=== PATIENT | female | born 1990 | race Caucasian/White ===

== ENCOUNTER 2022-10-12 10:46 | Emergency (ER) | payer OTHER, SELFPAY ==
[2022-10-12 11:00] VITALS: BP 120/70; PULSE 56; RESP 16; TEMP 36.4; O2SAT 100
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
== END 2022-10-12 11:24 | disposition home or self-care (01) ==
PROVIDERS: Emergency Provider Nurse Practitioner Family; PCP Family Medicine
DX: S13.4XXA Sprain of ligaments of cervical spine, initial encounter (principal); V93.89XA Other injury due to other accident on board unspecified watercraft, initial encounter; S06.0X0A Concussion without loss of consciousness, initial encounter
CPT/HCPCS: 99203; G0463

== ENCOUNTER 2023-07-18 12:30 | Emergency (ER) | payer OTHER, SELFPAY ==
--- NOTE | 2023-07-18 12:37 | ECG_ITS ---
SEE SCANNED COPY FOR CONFIRMED REPORT MTDD
--- NOTE | 2023-07-18 12:37 | ED.GENADULT ---
HPI - General Adult General Stated complaint: chest discomfort Time Seen by Provider: 07/18/23 12:37 Source: patient Mode of arrival: ambulatory Limitations: no limitations History of Present Illness HPI narrative: 33 yo F presents with c/o midsternal CP that a few minutes Was doing hardwork for about 1 hr before CP started. States she felt CP was a tightening sensation, felt lightheaded, fatigue and had cold sensation to hands and feet. Thought she was maybe having allergic reaction so she took zyrtec and used albuterol inhaler with no change. She took shower thinking she may be allergic to something that got on her body from being outdoors. Now has tightening to neck. Continues to feel tired, lightheaded and has cold sensation to hands and feet. hx of asthma. denies SOB. Denies anxiety. all systems reviewed and negative except as noted above. Related Data Home Medications Medication Instructions Recorded Confirmed levonorgestrel 21 mcg/24 hours (8 See Rx Instructions .Route .COMPLEX 10/12/22 10/12/22 yrs) 52 mg intrauterine device (Mirena) Allergies Allergy/AdvReac Type Severity Reaction Status Date / Time No Known Allergies Allergy Verified 10/12/22 10:53 Review of Systems Review of Systems: CONSTITUTIONAL: Denies fever, chills, or sweats. reports fatigue. EYES: Denies visual changes, redness, or discharge. ENT: Denies rhinorrhea, congestion, sore throat, or otalgia. CARDIOVASCULAR: Reports chest pain. Denies palpitations, or edema. RESPIRATORY: Denies cough or dyspnea. GASTROINTESTINAL: Denies abdominal pain, nausea, vomiting, or diarrhea. GENITOURINARY: Denies dysuria or hematuria. SKIN: Denies rash or itching. MUSCULOSKELETAL: Denies back pain, joint pain, or myalgia. NEUROLOGIC: Denies headache, numbness, or weakness. feeling lightheaded PSYCHIATRIC: Denies anxiety or depression. All other systems reviewed are negative, except as documented in HPI. PMFSH Comments At time of signature, agree with nursing past medical, surgical, social and family history. There is no relevant family history pertinent to the presenting complaint. Exam Narrative: GENERAL: This is a well-nourished, well-developed patient, in no apparent distress. HEAD: normocephalic, atraumatic. EYES: PERRL. Sclera clear/white. Vision is grossly intact. EARS: External ears normal NOSE: External nose normal NECK: Neck supple, non-tender without lymphadenopathy, masses or thyromegaly. CARDIOVASCULAR: Regular rate and rhythm without murmurs, gallops, or rubs. RESPIRATORY: Clear to auscultation. Breath sounds equal bilaterally. No wheezes, rales, or rhonchi. SKIN: warm, Dry, intact with no suspicious lesions or rash, good texture and turgor. NEURO: awake, alert, and oriented to person, place and time. There were no obvious focal neurologic abnormalities. EXTREMITIES: No joint tenderness, effusion, or edema noted. Course Course Level of Care: Express Care Visit Vital Signs Vital signs: Vital Signs Temperature 36.8 C 07/18/23 12:42 Pulse Rate 80 07/18/23 12:42 Respiratory Rate 18 07/18/23 12:42 Blood Pressure 140/72 07/18/23 12:42 Pulse Oximetry 100 07/18/23 12:42 Oxygen Delivery Room Air 07/18/23 12:42 Temperature 36.8 C 07/18/23 12:42 Pulse Rate 80 07/18/23 12:42 Respiratory Rate 18 07/18/23 12:42 Blood Pressure 140/72 07/18/23 12:42 Pulse Oximetry 100 07/18/23 12:42 Oxygen Delivery Room Air 07/18/23 12:42 reviewed Transfer Transfered to: [place] Transportation: Other ( private vehicle) Transfer rationale: transferring to [place] ER for further evaluation chest pain Accepting physician: MD Rodríguez Medical Decision Making [facility] Narrative Medical decision making narrative: EKG normal sinus rhythm. Transferring patient to ER to further evaluate her symptoms. Patient is aware of diagnosis, understands and agrees to treatment plan. Qamar moreno
[2023-07-18 12:42] VITALS: BP 140/72; PULSE 80; RESP 18; TEMP 36.8; O2SAT 100
== END 2023-07-18 12:47 | disposition short-term general hospital (02) ==
PROVIDERS: Emergency Provider Nurse Practitioner Family; PCP Family Medicine
DX: R07.9 Chest pain, unspecified (principal); R42 Dizziness and giddiness
CPT/HCPCS: 93005; 99213; G0463

== ENCOUNTER 2023-07-18 12:59 | Emergency (ER) | payer OTHER, SELFPAY ==
--- NOTE | ~2023-07-18 | XR_ITS ---
EXAMINATION: XR chest 2V DATE: 07/18/2023 13:38 INDICATION: Chest tightness TECHNIQUE: PA and lateral views of the chest were obtained. COMPARISON: None FINDINGS: The lungs are clear with no focal airspace opacities, pulmonary edema, pleural effusion or pneumothor ax. The cardiomediastinal silhouette is normal. Visualized bones and soft tissues are unremarkable. IMPRESSION: 1. No acute cardiopulmonary disease. Reviewed, dictated and finalized at location A.
--- NOTE | 2023-07-18 13:01 | ECG_ITS ---
SEE SCANNED COPY FOR CONFIRMED REPORT MTDD
[2023-07-18 13:03] VITALS: BP 126/68; PULSE 70; RESP 20; TEMP 36.6; O2SAT 100
[2023-07-18 13:15] VITALS: PULSE 79; RESP 16; O2SAT 100
[2023-07-18] MEDS: predniSONE 20 MG TABLET 40 MG PO (13:26)
[2023-07-18 13:27] LABS: Basophils Absolute Auto 0.1 K/mm3 (0.0-0.1); Basophils Percent Auto 0.7 % (0.2-1.2); Eosinophils Absolute Auto 0.1 K/mm3 (0-0.3); Eosinophils Percent Auto 1.6 % (0-4.4); Hematocrit 39.2 % (37.0-47.0); Hemoglobin 13.5 g/dL (12.0-15.0); Immature Granulocyte Absolute 0.03 K/mm3 (0.00-0.031); Immature Granulocyte Percent A 0.4 % (0-0.5); Lymphocytes Absolute Auto 2.37 K/mm3 (0.9-3.2); Lymphocytes Percent Auto 31.4 % (18.3-44.2); Mean Corpuscular HGB Conc 34.4 g/dl (32-36); Mean Corpuscular Hemoglobin 31.7 pg (26-34); Mean Platelet Volume 9.6 fl (7.4-10.4); Monocytes Absolute Auto 0.4 K/mm3 (0.1-0.6); Monocytes Percent Auto 4.9 % (2.6-8.5); Neutrophils Absolute Auto 4.6 K/mm3 (1.3-6.7); Platelet Count Result 277 k/mm3 (150-375); Red Blood Count 4.26 M/mm3 (4.2-5.4); Red Cell Distribution Width 12.3 % (11.5-14.5); White Blood Count 7.5 K/mm3 (4.5-10.0)
--- NOTE | 2023-07-18 13:28 | ED.CHESTPAIN ---
HPI - Chest Pain General Chief Complaint: Chest Pain Stated Complaint: chest tightness while doing yardwork Time Seen by Provider: 07/18/23 13:12 History of Present Illness HPI narrative: Patient has history of asthma, was doing yd work and trimming bushes when a bunch of falling and but is or falling on her, she started having chest tightness and felt like she was having trouble breathing and felt slightly lightheaded, also felt like her hands and feet felt slightly cold which is common due to thyroid condition, she had been out doing lawn work for about 2 hours, came in, gave herself some albuterol, felt slightly better, went to an urgent care because she was concerned about an asthma exacerbation, and they sent her to the ER because of a chest tightness. She has no cardiac history no history of blood clot she is already feeling better. Related Data Home Medications Medication Instructions Recorded Confirmed levonorgestrel 21 mcg/24 hours (8 See Rx Instructions .Route .COMPLEX 10/12/22 07/18/23 yrs) 52 mg intrauterine device (Mirena) Allergies Allergy/AdvReac Type Severity Reaction Status Date / Time cat dander Allergy Hives Verified 07/18/23 13:06 Review of Systems Review of Systems: CONST: No fever. HEENT: No sore throat C/V: Chest tightness now resolved RESP: Shortness of breath now resolved GI: No abdominal pain : No dysuria. M/S: No joint pain. SKIN: No rash. NEURO: [No headache or focal numbness or weakness] PSYCH: [No depression] Exam Narrative: EXAMINATION OF ORGAN SYSTEMS/BODY AREAS: Constitutional: Vital signs per nursing GENERAL:[No acute distress, non-toxic appearing.] HEAD: Normal with no signs of head trauma. EYES: EOMI, conjunctiva normal ENT: Hearing grossly intact LUNGS: Nonlabored breathing. Clear to auscultation bilaterally. HEART: [Regular rate and rhythm] ABD: [Soft], [nontender to palpation] EXT: Normal range of motion, no lower extremity edema swelling or tenderness SKIN: [No rashes or lesions.] NEURO: [Alert and oriented x 3. No gross focal sensory or strength deficits.] PSYCH: Normal affect Course Vital Signs Vital signs: Vital Signs Temperature 97.8 F 07/18/23 13:03 Pulse Rate 70 07/18/23 13:03 Respiratory Rate 20 07/18/23 13:03 Blood Pressure 126/68 07/18/23 13:03 Pulse Oximetry 100 07/18/23 13:03 Oxygen Delivery Room Air 07/18/23 13:03 Temperature 97.8 F 07/18/23 13:03 Pulse Rate 66 07/18/23 13:45 Respiratory Rate 16 07/18/23 13:45 Blood Pressure 104/84 07/18/23 13:39 Pulse Oximetry 100 07/18/23 13:45 Oxygen Delivery Room Air 07/18/23 13:03 MDM - Chest Pain MDM Narrative Medical decision making narrative: ED COURSE AND MEDICAL DECISION MAKINF with acute dyspnea and chest tightness likely due to acute asthma exacerbation based on history and exam, versus possibly heat exhaustion. She is PERC negative. Patient is hemodynamically stable. Sure the gave herself albuterol treatment and her lungs are clear here, so I did give steroids orally. She was sent from Urgent Care due to concern for chest which has already resolved here. I did personally and independently interpreted her EKG which is normal chest x-ray which was clear without any obvious consolidation or pneumothorax. Labs including troponin were negative. Patient monitored in the ED for a couple of hours and on reevaluation is feeling significantly better. No respiratory distress or accessory muscle use. Good air movement bilateral lungs. Prescriptions for steroid course provided. She is given strict return precautions instructions to avoid environmental triggers, and patient is discharged in stable/improved condition. Lab Data 07/18/23 13:23 07/18/23 13:23 Labs: Lab Results 07/18/23 Range/Units 13:23 WBC 7.5 (4.5-10.0) K/mm3 RBC 4.26 (4.2-5.4) M/mm3 Hgb 13.5 (12.0-15.0) g/dL Hct 39.2
[2023-07-18 13:30] VITALS: PULSE 75; RESP 18; O2SAT 98
[2023-07-18 13:31] VITALS: BP 123/72; PULSE 75; RESP 15; O2SAT 99
[2023-07-18 13:37] LABS: Alanine Aminotransferase 17 U/L (6-35); Albumin Level 4.5 g/dL (3.5-5.1); Alkaline Phosphatase 53 U/L (38-126); Anion Gap 7 mmol/L (4-12); Aspartate Amino Transferase 33 U/L (14-36); Bilirubin,Total 0.8 mg/dL (0.2-1.3); Blood Urea Nitrogen 17 mg/dL (7-17); Calcium 9.2 mg/dL (8.4-10.2); Carbon Dioxide 24 mmol/L (22-30); Chloride 106 mmol/L (98-107); Estimated CRCL calculation 94 ml/min; Estimated Glomerular Filt Rate > 60; Glucose 95 mg/dL (65-110); Lipase 63 U/L (23-300); Potassium 3.5 mmol/L (3.4-5.0); Sodium 137 mmol/L (137-145)
[2023-07-18 13:39] VITALS: BP 104/84; PULSE 64; RESP 15
[2023-07-18 13:39] LABS: Prothrombin Time 13.2 Seconds (11.1-14.7)
[2023-07-18 13:45] VITALS: PULSE 66; RESP 16; O2SAT 100
[2023-07-18 13:47] LABS: Partial Thromboplastin Time 31.8 Seconds (22.3-36.8)
[2023-07-18 13:48] LABS: Troponin I < 0.012 ng/mL (0.000-0.034)
== END 2023-07-18 14:07 | disposition home or self-care (01) ==
PROVIDERS: Student in an Organized Health Care Education/Training Program; Emergency Provider Emergency Medicine; PCP Family Medicine
DX: J45.901 Unspecified asthma with (acute) exacerbation (principal); R94.31 Abnormal electrocardiogram [ECG] [EKG]
CPT/HCPCS: 36415; 71046; 80053; 83690; 84484; 85025; 85610; 85730; 93005; 99284; J7512

== ENCOUNTER 2023-09-24 07:12 | Outpatient (CLI) | payer OTHER, SELFPAY ==
--- NOTE | ~2023-09-24 | MR_ITS ---
EXAMINATION: MR cervical spine wo con DATE: 09/24/2023 07:43 INDICATION: Neck pain. TECHNIQUE: Magnetic resonance imaging (MRI) of the cervical spine was performed without intravenous c ontrast. COMPARISON: None FINDINGS: There is mild kyphosis of cervical spine. Vertebral body heights and intervertebral disc he ights are normal. The spinal cord signal intensity is normal. The following disc levels are specifica lly discussed: C2-C3: The disc does not extend beyond the endplate margin. There is no uncovertebral joint osteoarth ritis. There is no facet joint osteoarthritis. There is no neural foraminal stenosis. There is no sera tral canal stenosis. C3-C4: The disc does not extend beyond the endplate margin. There is no uncovertebral joint osteoarth ritis. There is mild bilateral facet joint osteoarthritis. There is no neural foraminal stenosis. The re is no central canal stenosis. C4-C5: The disc does not extend beyond the endplate margin. There is no uncovertebral joint osteoarth ritis. There is no facet joint osteoarthritis. There is no neural foraminal stenosis. There is no sera tral canal stenosis. C5-C6: There is a central extrusion. There is no uncovertebral joint osteoarthritis. There is mild le ft facet joint osteoarthritis. There is no neural foraminal stenosis. There is mild central canal steph nosis with ventral indentation of the spinal cord. C6-C7: The disc does not extend beyond the endplate margin. There is no uncovertebral joint osteoarth ritis. There is mild bilateral facet joint osteoarthritis. There is no neural foraminal stenosis. The re is no central canal stenosis. C7-T1: The disc does not extend beyond the endplate margin. There is no uncovertebral joint osteoarth ritis. There is mild left facet joint osteoarthritis. There is no neural foraminal stenosis. There is no central canal stenosis. IMPRESSION: 1. Mild cervical spondylosis. Reviewed, dictated and finalized at location A.
== END 2023-09-24 07:13 ==
PROVIDERS: PCP Family Medicine; Visit Provider Chiropractor Rehabilitation
DX: M47.892 Other spondylosis, cervical region (principal)
CPT/HCPCS: 72141